=== PATIENT | male | born 1975 | race Caucasian/White ===

== ENCOUNTER 2023-02-10 11:20 | Emergency (ER) | payer BC, SELFPAY ==
[2023-02-10] VITALS (9 sets, daily range): BP systolic 131–152; BP diastolic 95–116; PULSE 79–109; RESP 14–18; TEMP 36.6; O2SAT 93–100
--- NOTE | ~2023-02-10 | XR_ITS ---
Portable chest x-ray Comparison: 05/14/2009 Clinical History: Chest pain Findings: Lungs are clear, without focal consolidation or pleural effusion. Cardiomediastinal silho uette is stable. Bones and soft tissues are unremarkable. Impression: Normal chest. Reviewed, dictated and finalized at location . Impression: Normal chest.
--- NOTE | 2023-02-10 11:28 | ECG_ITS ---
Measurements Intervals [place] Rate: 95 P: 60 FL: 190 QRS: -12 QRSD: 104 T: 18 QT: 336 QTc: 423 Interpretive Statements SINUS RHYTHM INDETERMINATE AXIS NO PREVIOUS ECG AVAILABLE FOR COMPARISON Electronically Signed On 02-10-2023 19:54:33 CDT by Tash Bean M.D.
[2023-02-10 11:34] LABS: Basophils Percent Auto 0.2 % (0.2-1.2); Eosinophils Absolute Auto 0.1 K/mm3 (0-0.3); Eosinophils Percent Auto 1.5 % (0-4.4); Hematocrit 48.4 % (42.0-52.0); Hemoglobin 15.7 g/dL (14.0-18.0); Immature Granulocyte Absolute 0.04 K/mm3 (0.00-0.031); Immature Granulocyte Percent A 0.4 % (0-0.5); Lymphocytes Percent Auto 29.1 % (18.3-44.2); Mean Corpuscular HGB Conc 32.4 g/dl (32-36); Mean Corpuscular Hemoglobin 29.8 pg (26-34); Mean Corpuscular Volume 91.8 fl (80-100); Mean Platelet Volume 9.6 fl (7.4-10.4); Monocytes Absolute Auto 0.8 K/mm3 (0.1-0.6); Monocytes Percent Auto 8.4 % (2.6-8.5); Neutrophils Absolute Auto 5.4 K/mm3 (1.3-6.7); Neutrophils Percent Auto 60.4 % (45.5-73.1); Platelet Count Result 321 k/mm3 (150-375); Red Blood Count 5.27 M/mm3 (4.6-6.20); Red Cell Distribution Width 13.1 % (11.5-14.5)
[2023-02-10] MEDS: IPRATROPIUM BR 0.02% INH SOLN 0.5 MG/2.5 ML VIAL INHALATION (11:34)
[2023-02-10] MEDS: ALBUTEROL SULFATE NEB 2.5 MG/3 ML INH INHALATION (11:34)
[2023-02-10 11:45] LABS: Alanine Aminotransferase 32 U/L (6-50); Albumin Level 4.5 g/dL (3.5-5.1); Alkaline Phosphatase 60 U/L (38-126); Anion Gap 8 mmol/L (8-16); Aspartate Amino Transferase 23 U/L (17-59); Bilirubin,Total 0.4 mg/dL (0.2-1.3); Blood Urea Nitrogen 17 mg/dL (9-20); Calcium 9.3 mg/dL (8.4-10.2); Carbon Dioxide 27 mmol/L (22-30); Chloride 101 mmol/L (98-107); Estimated CRCL calculation 89 ml/min; Estimated Glomerular Filt Rate > 60; Glucose 145 mg/dL (65-110); INR 0.9; Lipase 105 U/L (23-300); Partial Thromboplastin Time 28.7 SECONDS (22.3-36.8); Potassium 4.2 mmol/L (3.4-5.0); Prothrombin Time 12.4 Seconds (11.1-14.7); Sodium 136 mmol/L (137-145)
[2023-02-10 12:02] LABS: Troponin I < 0.012 ng/mL (0.000-0.034)
--- NOTE | 2023-02-10 13:00 | PC.NURSE ---
RN spoke with Pt. daughter An to pick her up. Pt daughter states that she lives in [place] and will be here shortly.
[2023-02-10 14:25] LABS: Troponin I < 0.012 ng/mL (0.000-0.034)
--- NOTE | 2023-02-10 14:31 | ED.CHESTPAIN ---
HPI - Chest Pain General Chief Complaint: Chest Pain Stated Complaint: CP Time Seen by Provider: 02/10/23 11:24 History of Present Illness HPI narrative: Patient is a 47-year-old male who presents ER with chest pain. Reports its central and tightness. Began around 9/9:30 AM as he was being arrested. Reports he became diaphoretic. No history of heart disease. No trauma. Denies fevers or chills or sweats. No runny nose or sore throat or productive cough. No family history of heart disease. Cannot describe any aggravating or alleviating factors. Patient no longer diaphoretic. Related Data Allergies Allergy/AdvReac Type Severity Reaction Status Date / Time No Known Allergies Allergy Mild Unverified 08/18/19 10:24 Review of Systems Review of Systems: All systems reviewed & are unremarkable except as noted in HPI and below Constitutional: Constitutional: Denies chills, Denies fatigue and Denies fever(s) Comments: + Diaphoresis ENT: Denies nasal congestion and Denies sore throat Cardiovascular: Cardiovascular: Reports chest pain, Denies rapid heart rate and Denies radiating jaw, neck or arm pain Respiratory: Respiratory: Denies cough, Denies dyspnea and Reports wheezing Gastrointestinal: Gastrointestinal: Denies abdominal pain, Denies nausea and Denies vomiting Musculoskeletal: Musculoskeletal: Denies arthralgias and Denies joint swelling PMFSH Past Medical History Medical History (Updated 02/10/23 @ 14:37 by Dwight Morales MD) Healthy adult male Surgical History Surgical History (Updated 02/10/23 @ 14:33 by Dwight Morales MD) No pertinent past surgical history Exam Narrative: GENERAL: Well-appearing, well-nourished, and in no acute distress. HEAD: Normocephalic, atraumatic. ENT: Mucous membranes moist. NECK: Supple. CHEST: Faint wheezing diffusely. No respiratory distress. HEART: Regular rate and rhythm. Normal peripheral pulses. ABDOMEN: Soft, nontender, nondistended. EXTREMITIES: Normal range of motion. No edema. SKIN: Warm, dry, no rash. NEURO: Alert and oriented x3. PSYCH: Normal mood and affect. Course Course Emergency Course: Patient resting comfortably. Lung sounds clear after nebulizer treatment. Troponin negative x2. Patient felt appropriate for discharge into police custody. Patient has no heart disease. He has was felt to be a nonischemic EKG. Additionally it seems as though he likely had a anxiety attack due to his arrest. Patient became anxious again upon finding out that he be discharged to senior care. Reassured him that this is felt to be a stress reaction. Vital Signs Vital signs: Vital Signs Temperature 97.8 F 02/10/23 11:20 Pulse Rate 87 02/10/23 11:20 Respiratory Rate 18 02/10/23 11:20 Blood Pressure 131/101 H 02/10/23 11:20 Pulse Oximetry 98 02/10/23 11:20 Oxygen Delivery Room Air 02/10/23 11:20 Temperature 97.8 F 02/10/23 11:20 Pulse Rate 79 02/10/23 14:23 Respiratory Rate 15 02/10/23 14:23 Blood Pressure 150/95 H 02/10/23 14:23 Pulse Oximetry 99 02/10/23 14:23 Oxygen Delivery Room Air 02/10/23 11:20 MDM - Chest Pain Lab Data 02/10/23 11:29 02/10/23 11:29 Labs: Lab Results 02/10/23 02/10/23 Range/Units 11:29 13:58 WBC 9.0 (4.5-10.0) K/mm3 RBC 5.27 (4.6-6.20) M/mm3 Hgb 15.7 (14.0-18.0) g/dL Hct 48.4 (42.0-52.0) % MCV 91.8 (80-100) fl MCH 29.8 (26-34) pg MCHC 32.4 (32-36) g/dl RDW 13.1 (11.5-14.5) % Plt Count 321 (150-375) k/mm3 MPV 9.6 (7.4-10.4) fl Immature Gran % (Auto) 0.4 (0-0.5) % Neut % (Auto) 60.4 (45.5-73.1) % Lymph % (Auto) 29.1 (18.3-44.2) % [place] % (Auto) 8.4 (2.6-8.5) % Eos % (Auto) 1.5 (0-4.4) % Baso % (Auto) 0.2 (0.2-1.2) % Lymph # (Auto) 2.60 (0.9-3.2) K/mm3 [place] # (Auto) 0.8 H (0.1-0.6) K/mm3 Eos # (Auto) 0.1 (0-0.3) K/mm3 Baso # (Auto) 0.0 (0.0-0.1) K/mm3 Abs
== END 2023-02-10 14:55 ==
PROVIDERS: Emergency Provider Emergency Medicine
DX: R07.89 Other chest pain (principal); F41.9 Anxiety disorder, unspecified; R06.2 Wheezing
CPT/HCPCS: 36415; 71045; 80053; 83690; 84484; 85025; 85610; 85730; 93005; 94640; 99284

== ENCOUNTER 2025-02-02 00:28 | Emergency (ER) | payer BC, SELFPAY ==
[2025-02-02] VITALS (8 sets, daily range): BP systolic 123–133; BP diastolic 72–91; PULSE 81–99; RESP 8–18; TEMP 36.6; O2SAT 93–99
--- NOTE | ~2025-02-02 | XR_ITS ---
Portable chest x-ray Comparison: 02/10/2023 Clinical History: Chest pain Findings: Lungs are clear, without focal consolidation or pleural effusion. Cardiomediastinal silho uette is stable. Bones and soft tissues are unremarkable. Impression: Clear lungs. Reviewed, dictated and finalized at location . Impression: Clear lungs.
--- NOTE | 2025-02-02 00:36 | ECG_ITS ---
Test Date: 2025-02-02 00:44:39 Measurements Intervals [place] Rate: 91 P: 80 DC: 194 QRS: 64 QRSD: 97 T: 60 QT: 338 QTc: 417 Interpretive Statements SINUS RHYTHM DELAYED PRECORDIAL R/S TRANSITION ST ELEVATION IN DIFFUSE LEADS- PROBABLY EARLY REPOLARIZATION OR PERICARDITIS PEAKED T WAVES- CONSIDER HYPERKALEMIA BASELINE ARTIFACT- I, II, III, AVR, AVL, AVF, V1-V6 ABNORMAL ECG No previous ECG available for comparison Electronically Signed On 02-02-2025 06:35:06 CDT by Pipe Coates D.O.
--- NOTE | 2025-02-02 00:40 | ED_ITS ---
HPI - Chest Pain General Chief Complaint: Chest Pain Stated Complaint: medical clearance Time Seen by Provider: 02/02/25 00:29 Source: patient and EMS Mode of arrival: EMS Limitations: no limitations History of Present Illness HPI narrative: this is a 49-year-old male that presents via EMS with chest pain midsternal that started after he was at a bar and states that he has not been drinking but developed chest pain after he was told he was being arrested by law enforcement. Patient with no shortness of breath no radiation of his pain no nausea vomiting no prior history of heart disease. Patient states that he used methamphetamine approximately 4 days ago but nothing recent, denies alcohol use nonsmoker. complaint: chest pain Onset (ago): hour(s) Timing of current episode: constant Prior episodes: Yes Onset: other ( after told he was going to be arrested developed chest pain) Related Data Allergies Allergy/AdvReac Type Severity Reaction Status Date / Time No Known Allergies Allergy Mild Verified 02/02/25 00:40 Review of Systems 2 Review of Systems: All systems reviewed & are unremarkable except as noted in HPI and below PMFSH Past Medical History Medical History Healthy adult male Surgical History Surgical History No pertinent past surgical history Exam 2 Const: General: cooperative, comfortable, no acute distress, well developed, alert and awake HENMT: Head: normal to inspection and No palpable skull fracture present F yusef and sinus: normal facial exam Eyes: General: appearance normal, both eyes and all related structures A lignment and Position: alignment normal Neck: Neck: normal visual inspection, full ROM, no lymphadenopathy and no meningeal signs Chest: Chest palpation & inspection: normal inspection of the chest and normal palpation of entire chest wall Resp: Effort & Inspection: normal respiratory effort and able to speak in complete sentences Auscultation: clear to auscultation bilaterally Cardio: Jugular venous distension: no JVD Palpation: normal PMI Rate: r egular rate Rhythm: regular rhythm Heart sounds: S1 normal heart sound present and S2 normal heart sound present GI: Inspection: normal to inspection Percussion: Yes normal to percussion Auscultation: normal bowel sounds : General: Yes bimanual renal exam normal bilaterally Skin: General skin exam: normal color and no rashes or lesions noted Neuro: General: oriented to person, oriented to place, oriented to time and patient oriented x3 Extrem: General: normal to inspection, full ROM, capillary refill normal and normal exam except as noted Course Vital Signs Vital signs: Vital Signs Pulse Rate 93 02/02/25 00:28 Temperature 36.6 C 02/02/25 00:33 Pulse Rate 90 02/02/25 03:16 Respiratory Rate 9 L 02/02/25 02:01 Blood Pressure 133/86 02/02/25 03:16 Pulse Oximetry 96 02/02/25 02:31 Oxygen Delivery Room Air 02/02/25 00:33 MDM - Chest Pain Lab Data 02/02/25 00:46 02/02/25 00:46 Labs: Lab Results 02/02/25 02/02/25 02/02/25 Range/Units 00:43 00:46 02:37 WBC 7.0 (4.8-10.8) K/mm3 RBC 4.85 (4.70-6.10) M/mm3 Hgb 14.3 (14.0-18.0) g/dL Hct 43.3 (40.0-54.0) % MCV 89.3 (78.0-102.0) fL MCH 29.5 (27.0-31.0) pg MCHC 33.0 (32-36) g/dL RDW 12.6 (11.6-14.4) % Plt Count 288 (150-420) K/mm3 MPV 9.3 (8.7-11.0) fl Immature Gran % (Auto) 0.3 H (0.0-0.0) % Neut % (Auto) 60.8 (50.0-70.0) % Lymph % (Auto) 28.6 (18.0-42.0) % [place] % (Auto) 9.0 (2.0-11.0) % Eos % (Auto) 0.7 L (1.0-6.0) % Baso % (Auto) 0.6 (0.0-1.0) % Lymph # (Auto) 2.01 (1.10-4.50) K/mm3 [place] # (Auto) 0.63 (0.10-0.90) K/mm3 Eos # (Auto) 0.05 (0.02-0.50) K/mm3 Baso # (Auto) 0.04 (0.00-0.10) K/mm3 Abs Immat Gran (auto) 0.02 H (0.00-0.00) K/mm3 Absolute Neuts (auto) 4.27 (1.70-7.20) K/mm3 Absolute Nucleated RBC 0.00 (0.00-0.00) K/mm3 Nucleated RBC % 0.0 (0-0.0) % PT 10.9 (9.50-12.1) Seconds INR 1.0 APTT 31.4 H (23.9-30.70) Sec Sodium 138 (137-145) mmol/L Potassium 3.3 L (3.4-5.0) mmol/L Chloride 105 (98-107) mmol/L Carbon Dioxide 25 (22-30) mmol/L Anion Gap 8 (4-12) mmol/L BUN 15 (9-20) mg/dL Creatinine 0.87 (0.7-1.3) mg/dL Estim Creat Clear Calc 95 ml/min Estimated GFR > 60 (59 - ) Glucose 113 H (65-110) mg/dL Calculated Osmolality 287 (285-295) mOsm/kg Calcium 9.2 (8.4-10.2) mg/dL Total Bilirubin 0.8 (0.2-1.3) mg/dL AST 29 (17-59) U/L ALT 34 (6-50) U/L Alkaline Phosphatase 65 (38-126) U/L Troponin I < 0.012 < 0.012 (0.000-0.034) ng/mL Total Protein 7.4 (6.3-8.2) g/dL Albumin 4.1 (3.5-5.1) g/dL Lipase 95 (23-300) U/L Ethyl Alcohol < 10 (<10) mg/dL Critical Care Time Critical Care Time Critical Care Time: No Discharge Plan Discharge Clinical Impression: Atypical chest pain, Anxiety Patient Disposition: Home Condition: Stable Instructions: Antibiotic Form, Anxiety (ED), Chest Wall Pain (ED) Additional Instructions: advised patient to follow-up with primary care physician within 1 week for further evaluation and treatment. Patient Language: Luxem[place]ish Follow-up/Referrals: Per Keller MD [Primary Care Provider] - Time of Disposition: 03:25
[2025-02-02 00:50] LABS: Basophils Absolute Auto 0.04 K/mm3 (0.00-0.10); Basophils Percent Auto 0.6 % (0.0-1.0); Eosinophils Absolute Auto 0.05 K/mm3 (0.02-0.50); Eosinophils Percent Auto 0.7 % (1.0-6.0); Hematocrit 43.3 % (40.0-54.0); Hemoglobin 14.3 g/dL (14.0-18.0); Immature Granulocyte Absolute 0.02 K/mm3 (0.00-0.00); Immature Granulocyte Percent A 0.3 % (0.0-0.0); Lymphocytes Absolute Auto 2.01 K/mm3 (1.10-4.50); Lymphocytes Percent Auto 28.6 % (18.0-42.0); Mean Corpuscular Hemoglobin 29.5 pg (27.0-31.0); Mean Corpuscular Volume 89.3 fL (78.0-102.0); Mean Platelet Volume 9.3 fl (8.7-11.0); Monocytes Absolute Auto 0.63 K/mm3 (0.10-0.90); Neutrophils Absolute Auto 4.27 K/mm3 (1.70-7.20); Neutrophils Percent Auto 60.8 % (50.0-70.0); Platelet Count Result 288 K/mm3 (150-420); Red Blood Count 4.85 M/mm3 (4.70-6.10); Red Cell Distribution Width 12.6 % (11.6-14.4)
[2025-02-02 01:01] LABS: Alanine Aminotransferase 34 U/L (6-50); Albumin Level 4.1 g/dL (3.5-5.1); Alkaline Phosphatase 65 U/L (38-126); Anion Gap 8 mmol/L (4-12); Aspartate Amino Transferase 29 U/L (17-59); Bilirubin,Total 0.8 mg/dL (0.2-1.3); Blood Urea Nitrogen 15 mg/dL (9-20); Calcium 9.2 mg/dL (8.4-10.2); Carbon Dioxide 25 mmol/L (22-30); Chloride 105 mmol/L (98-107); Estimated CRCL calculation 95 ml/min; Estimated Glomerular Filt Rate > 60; Glucose 113 mg/dL (65-110); Lipase 95 U/L (23-300); Osmolality Calculated 287 mOsm/kg (285-295); Potassium 3.3 mmol/L (3.4-5.0); Sodium 138 mmol/L (137-145); Total Protein 7.4 g/dL (6.3-8.2)
[2025-02-02 01:02] LABS: Partial Thromboplastin Time 31.4 Sec (23.9-30.70); Prothrombin Time 10.9 Seconds (9.50-12.1)
[2025-02-02 01:02] LABS: Ethanol < 10 mg/dL (<10)
[2025-02-02 01:14] LABS: Troponin I < 0.012 ng/mL (0.000-0.034)
[2025-02-02 03:08] LABS: Troponin I < 0.012 ng/mL (0.000-0.034)
== END 2025-02-02 03:34 | disposition home or self-care (01) ==
PROVIDERS: Emergency Provider Emergency Medicine; PCP Internal Medicine
DX: R07.89 Other chest pain (principal); F41.9 Anxiety disorder, unspecified
CPT/HCPCS: 36415; 71045; 80053; 82077; 83690; 84484; 85025; 85610; 85730; 93005; 99284